=== PATIENT | female | born 2000 | race Caucasian/White ===

== ENCOUNTER 2019-05-01 20:54 | Emergency (ER) | payer MEDICAID ==
[~2019-05-01] VITALS: Ht 167.6 cm; Wt 48.5 kg
[2019-05-01 21:08] VITALS: BP_SYST 125
--- NOTE | 2019-05-01 21:13 | NUR ---
Patient triaged and placed in waiting room. VSS and patient appears in no acute distress at this time. Accompanied by mother, awaiting available bed, and MD notified of need for MSE.
--- NOTE | 2019-05-01 21:35 | NUR ---
Patient to ER bed 4 to gown for evaluation. Side rails up. Report received from SHARRON Scott.
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
--- NOTE | 2019-05-01 22:09 | NUR ---
ER Dr. Farrell at bedside examining patient.
[2019-05-01] MEDS ORDERED: ACETAMINOPHEN 500 MG TABLET PO ONE (22:30)
[2019-05-01] MEDS ORDERED: ACETAMINOPHEN/CODEINE 300 MG-30 MG TABLET PO ONE (22:30)
--- NOTE | 2019-05-01 23:26 | NUR ---
ER Dr. Farrell at bedside explaining results to patient.
[2019-05-01 23:37] VITALS: BP_SYST 122
--- NOTE | 2019-05-01 23:37 | NUR ---
Patient given written and verbal discharge instructions and verbalizes understanding. ER MD discussed with patient the results and treatment provided. Patient in stable condition. ID arm band removed. Rx of Naprosyn Flexeril given. Patient educated on pain management and to follow up with PMD. Pain Scale 0. Opportunity for questions provided and answered. Medication side effect fact sheet provided.
== END 2019-05-01 23:37 | disposition home or self-care (01) ==
LOC: SED 20:54
DX: S13.4XXA Sprain of ligaments of cervical spine, initial encounter (principal); S23.3XXA Sprain of ligaments of thoracic spine, initial encounter; R51 Headache; V49.49XA Driver injured in collision with other motor vehicles in traffic accident, initial encounter; Y93.89 Activity, other specified; Y92.89 Other specified places as the place of occurrence of the external cause; Y99.8 Other external cause status
CPT/HCPCS: 81025; 99283